=== PATIENT | female | born 1970 | race Caucasian/White ===

== ENCOUNTER → 2024-06-09 | Outpatient (CLI) | payer SELFPAY ==
--- NOTE | 2024-06-09 14:45 | US_ITS ---
PROCEDURE: PELVIC (NON ) 06/09/2024 REASON FOR EXAM: PELVIC AND PERINEAL PAIN TECHNIQUE: Transabdominal pelvic ultrasound. Color and spectral doppler analysis of the ovaries. COMPARISON: None. FINDINGS: Measurements: Uterus: 8.1 x 4.2 x 4.4 cm with a volume of 77.56 mL Endometrial Thickness: 10.1 mm. Right Ovary: 2.5 x 1.5 x 2.0 cm with a volume of 6.5 mL. Left Ovary: 6.0 x 6.1 x 3.9 cm with a volume of 73.4 mL. Uterus: Anteverted. A posterior myometrial fibroid is measured at 11 x 13 x 9 mm. A left exophytic fibroid is measured at 17 x 19 x 20 mm. Endometrium: Normal echotexture. Right ovary: Normal size and echotexture. Left ovary: A left ovarian cyst is measured at 5.0 x 5.4 x 3.9 cm. No internal blood flow is seen upon color Doppler evaluation. Other adnexal findings: None. Cul-de-sac: No free intraperitoneal fluid identified. No tenderness. The urinary bladder is incompletely filled, partially visualized, without apparent abnormality. DOPPLER: Color Doppler: Normal color flow doppler signal at both ovaries. Spectral Doppler: Normal arterial inflow and venous outflow signal at both ovaries. US/Pelvic (Non ) IMPRESSION: 1. Left ovarian cyst. 2. Uterine fibroids. 3. No free fluid is seen. Reading Location: [address]
== END | disposition home or self-care (01) ==
PROVIDERS: PCP Family Medicine; Referring Provider Family Medicine; Visit Provider Family Medicine
DX: R10.2 Pelvic and perineal pain (principal)
CPT/HCPCS: 76856